=== PATIENT | male | born 1990 | race Hispanic/Latino ===

== ENCOUNTER 2017-02-08 00:26 | Emergency (ER) | payer OTHER ==
[2017-02-08] MEDS ORDERED: Sodium Chloride 0.9% 1,000 ML IV STA ×2 (01:12→02:26)
--- NOTE | 2017-02-08 01:21 | ED PDOC ---
HPI: General Adult Time Seen by Provider: 02/08/17 00:41 Chief Complaint (Nursing): Abdominal Pain History Per: Patient Additional Complaint(s): Pt. states yesterday at 1800 he developed multiple episodes of non-bloody vomiting associated with crampy abdominal pain and non-bloody watery diarrhea. Reports abdominal pain is present only with vomiting. Denies hematemesis, melena , hematochezia, BRBPR, fever, chest pain, recent travel, sick contacts. Past Medical History Reviewed: Historical Data, Nursing Documentation, Vital Signs Vital Signs: Last Vital Signs Temp 99.9 F H 02/08/17 04:03 Pulse 83 02/08/17 04:03 Resp 18 02/08/17 04:03 BP 125/58 L 02/08/17 04:03 Pulse Ox 99 02/08/17 04:03 - Surgical History Surgical History: No Surg Hx - Family History Family History: States: No Known Family Hx - Home Medications Home Medications: Ambulatory Orders Medication Instructions Recorded Dicyclomine [Bentyl] 20 mg PO Q8 PRN #14 tab 02/08/17 Famotidine [Pepcid] 20 mg PO DAILY PRN #14 tab 02/08/17 Ondansetron ODT [Zofran ODT] 4 mg PO TID #14 odt 02/08/17 - Allergies Allergies/Adverse Reactions: Allergies Allergy/AdvReac Type Severity Reaction Status Date / Time No Known Allergies Allergy Verified 02/08/17 00:44 Review of Systems ROS Statement: Except As Marked, All Systems Reviewed And Found Negative Gastrointestinal: Positive for: Nausea, Vomiting, Abdominal Pain, Diarrhea Physical Exam - Reviewed Nursing Documentation Reviewed: Yes Vital Signs Reviewed: Yes - Physical Exam Appears: Positive for: Well, Non-toxic, No Acute Distress Head Exam: Positive for: ATRAUMATIC, NORMAL INSPECTION, NORMOCEPHALIC Skin: Positive for: Normal Color, Warm. Negative for: Pallor Eye Exam: Positive for: EOMI, Normal appearance, PERRL ENT: Positive for: Other (mucous membranes dry). Negative for: Pharyngeal Erythema, Tonsillar Exudate, Tonsillar Swelling Neck: Positive for: Normal, Painless ROM Cardiovascular/Chest: Positive for: Regular Rate, Rhythm Respiratory: Positive for: CNT, Normal Breath Sounds Gastrointestinal/Abdominal: Positive for: Normal Exam, Bowel Sounds, Soft. Negative for: Tenderness Back: Positive for: Normal Inspection Extremity: Positive for: Normal ROM Neurologic/Psych: Positive for: Alert, Oriented. Negative for: Aphasia, Facial Droop - Laboratory Results Result Diagrams: 02/08/17 01:35 02/08/17 01:35 - ECG O2 Sat by Pulse Oximetry: 97 - Progress ED Course And Treament: Labs ordered. Zofran 4mg IV, pepcid 20mg IV, bentyl 20mg PO ordered. IV NS bolus x 1 ordered. 0241 On re-evaluation, pt. reports feeling much better. Denies pain. Abd remains soft and non-tender to deep palpation. Labs reviewed and agrees with plan. Disposition - Clinical Impression Clinical Impression: Gastroenteritis, Leukocytosis - Patient ED Disposition Is Patient to be Admitted: No - Disposition Referrals: Dewayne Wade [Outside] Disposition: Routine/Home Disposition Time: 02:41 Condition: IMPROVED Prescriptions: Dicyclomine [Bentyl] 20 mg PO Q8 PRN #14 tab PRN Reason: abdominal pain Famotidine [Pepcid] 20 mg PO DAILY PRN #14 tab PRN Reason: Dyspepsia Ondansetron ODT [Zofran ODT] 4 mg PO TID #14 odt Instructions: Gastroenteritis (ED) Forms: [employer] ([place]), [facility] ED School/Work Excuse Print Language: GUYANESE
[2017-02-08 01:41] LABS: BASO % 0.1 % (0.0-2.0); EOS % 0.1 % (0.0-4.0); HEMATOCRIT 46.8 % (35.0-51.0); LYMPH # 0.5 K/uL (1.0-4.3); LYMPH % 2.5 % (20.0-40.0); MEAN CELL VOLUME 94.4 fl (80.0-94.0); MEAN CORPUSCULAR HGB CONC 33.9 g/dL (33.0-37.0); MEAN PLATELET VOLUME 8.3 fl (7.2-11.7); MONO # 0.6 K/uL (0.0-0.8); NEUT # 19.4 K/uL (1.8-7.0); NEUT % 94.3 % (50.0-75.0); PLATELET COUNT 301 K/uL (130-400); RED CELL DISTRIBUTION WIDTH 12.4 % (11.5-14.5); WHITE BLOOD COUNT 20.6 K/uL (4.8-10.8)
[2017-02-08 01:51] LABS: ALB/GLOB RATIO 1.4 (1.0-2.1); ALKALINE PHOSPHATASE 55 U/L (38-126); ALT/SGPT 40 U/L (21-72); AST/SGOT 24 U/L (17-59); BILIRUBIN,TOTAL 0.9 mg/dl (0.2-1.3); BLOOD UREA NITROGEN 14 mg/dl (9-20); CALCIUM 9.4 mg/dL (8.4-10.2); CARBON DIOXIDE 23 mmol/L (22-30); CHLORIDE 102 mmol/L (98-107); GFR AFRICAN-AMERICAN > 60; GLUCOSE,RANDOM 128 mg/dL (75-110); LIPASE 63 U/L (23-300); SODIUM 138 mmol/l (132-148); TOTAL PROTEIN 8.4 G/DL (6.3-8.2)
[2017-02-08 03:31] LABS: EOSINOPHIL 1 % (0-7); NEUTROPHIL 90 % (42-75); TOTAL CELLS COUNTED 100
[2017-02-08 04:04] VITALS: BP 125/58; PULSE 83; TEMP 99.9
[2017-02-08 04:41] VITALS: RESP 16; O2SAT 99
== END 2017-02-08 05:11 | disposition home or self-care (01) ==
LOC: H.ER 00:26
DX: K52.9 Noninfective gastroenteritis and colitis, unspecified (principal)
CPT/HCPCS: 80053; 83690; 85025; 87045; 96361; 96374; 96375; 99284; J2405; J7040